=== PATIENT | female | born 1965 | race Caucasian/White ===

== ENCOUNTER 2023-11-26 06:31 | Day surgery (SDC) | payer OTHER, SELFPAY ==
[2023-11-17 08:56] LABS: Urine Albumin Negative (Neg - Trace); Urine Bilirubin Negative (Negative); Urine Character Clear (Clear); Urine Color Yellow; Urine Glucose Negative (Negative); Urine Ketone Negative (Negative); Urine Leukocyte Trace (Negative); Urine Nitrite Negative (Negative); Urine Occult Blood Negative (Negative); Urine Urobilinogen Negative (Neg - 1+)
[2023-11-17 08:57] LABS: Hematocrit 43.7 % (37.0-47.0); Hemoglobin 14.6 g/dL (12.0-16.0); Mean Corp Hgb Conc. 33.4 g/dL (33.0-37.0); Mean Corpuscular Hgb 29.3 pg (27.0-31.0); Mean Corpuscular Volume 87.6 fL (81.0-99.0); Mean Platelet Volume 10.3 fL (7.4-10.4); Platelet Count 257 10^3/uL (130-400); Red Blood Cell Count 4.99 10^6/uL (4.20-5.40); Red Cell Dist. Width 13.2 % (11.5-14.5); White Blood Cell Count 7.4 10^3/uL (4.8-10.8)
[2023-11-17 09:02] LABS: HCG, Urine Qualitative Screen Negative
[2023-11-17 09:20] LABS: ALT (SGPT) 82 U/L (0-35); AST (SGOT) 51 U/L (14-36); Albumin 4.1 g/dl (3.5-5.0); Alkaline Phosphatase 77 U/L (38-126); Blood Urea Nitrogen 16 mg/dl (7-17); Calcium 9.8 mg/dl (8.4-10.2); Carbon Dioxide 29 mmol/L (22-30); Chloride 102 mmol/L (98-107); Glucose 117 mg/dl (70-99); Potassium 5.1 mmol/L (3.5-5.1); Sodium 139 mmol/L (135-145); Total Bilirubin 0.6 mg/dl (0.2-1.3); Total Protein 6.8 g/dl (6.3-8.2); eGFR > 60.00
[2023-11-17 09:35] LABS: Urine Mucus Many; Urine Squamous Cell >30 /LPF (Few)
[2023-11-17 09:37] LABS: Urine Amorphous Seen; Urine Bacteria Few (Negative); Urine Red Blood Cell 0-2 /HPF (0-2); Urine White Cell 0-2 /HPF (0-5)
[2023-11-17 12:44] VITALS: BMI 28.4
[2023-11-26] VITALS (22 sets, daily range): BP systolic 105–153; BP diastolic 58–113; BMI 28.4
[2023-11-26] MEDS: NORMOSOL-R 1000 IV (11:42)
[2023-11-26] MEDS: DILAUDID 0.5 MG IV (13:59)
[2023-11-26] MEDS: ROXICODONE 5 MG PO (14:18)
== END 2023-11-26 17:40 | disposition home or self-care (01) ==
LOC: SDS 06:31
PROVIDERS: ATTENDING PHYSICIAN Podiatrist Foot & Ankle Surgery; FAMILY PHYSICIAN Registered Nurse
DX: M20.5X2 Other deformities of toe(s) (acquired), left foot (principal); M19.072 Primary osteoarthritis, left ankle and foot; M25.572 Pain in left ankle and joints of left foot
CPT/HCPCS: 28292; 88304; 88311; 36415; 80053; 81003; 81015; 81025; 85027

== ENCOUNTER → 2023-12-15 09:58 | Outpatient (REF) | payer OTHER, SELFPAY | LOC: WDC 09:58 | PROVIDERS: ATTENDING PHYSICIAN Obstetrics & Gynecology Gynecology; FAMILY PHYSICIAN Registered Nurse | DX: N63.10 Unspecified lump in the right breast, unspecified quadrant (principal); N63.13 Unspecified lump in the right breast, lower outer quadrant | CPT/HCPCS: 76642; 77061; 77065 ==

== ENCOUNTER → 2024-07-24 10:36 | Outpatient (REF) | payer OTHER, SELFPAY | LOC: RAD 10:36 | PROVIDERS: ATTENDING PHYSICIAN Family Medicine | DX: M79.661 Pain in right lower leg (principal) | CPT/HCPCS: 93971 ==

== ENCOUNTER → 2024-10-19 13:30 | Outpatient (REF) | payer OTHER, SELFPAY | LOC: WDC 13:30 | PROVIDERS: ATTENDING PHYSICIAN Obstetrics & Gynecology Gynecology; FAMILY PHYSICIAN Family Medicine | DX: Z78.0 Asymptomatic menopausal state (principal); Z12.31 Encounter for screening mammogram for malignant neoplasm of breast | CPT/HCPCS: 77063; 77067 ==

== ENCOUNTER 2025-02-23 14:48 | Emergency (ER) | payer OTHER, SELFPAY ==
[2025-02-23 14:48] VITALS: BMI 27.5
[2025-02-23 15:01] VITALS: BP 139/100
[2025-02-23 15:27] LABS: % Basophils 1.1 % (0-2); % Eosinophils 4.7 % (0-6); % Immature Granulocytes 0.2 % (0-0.5); % Lymphocytes 33.3 % (20.5-51.1); % Neutrophils 52.7 % (42.2-75.2); Absolute Basophils 0.1 10^3/uL (0-0.2); Absolute Eosinophils 0.4 10^3/uL (0-0.7); Absolute Lymphocytes 2.7 10^3/uL (1.2-3.4); Absolute Monocytes 0.6 10^3/uL (0.1-0.6); Absolute Neutrophils 4.2 10^3/uL (1.4-6.5); Hematocrit 43.1 % (37.0-47.0); Hemoglobin 14.5 g/dL (12.0-16.0); Mean Corp Hgb Conc. 33.6 g/dL (33.0-37.0); Mean Corpuscular Hgb 29.3 pg (27.0-31.0); Mean Corpuscular Volume 87.1 fL (81.0-99.0); Mean Platelet Volume 10.2 fL (7.4-10.4); Nucleated Red Blood Cells % 0 %; Platelet Count 252 10^3/uL (130-400); Red Blood Cell Count 4.95 10^6/uL (4.20-5.40); Red Cell Dist. Width 12.9 % (11.5-14.5)
[2025-02-23 15:37] LABS: Lactic Acid 1.1 mmol/L (0.7-2.0)
[2025-02-23 15:38] LABS: ALT (SGPT) 26 U/L (0-35); AST (SGOT) 23 U/L (14-36); Albumin 4.3 g/dl (3.5-5.0); Alkaline Phosphatase 70 U/L (38-126); Blood Urea Nitrogen 12 mg/dl (7-17); Carbon Dioxide 28 mmol/L (22-30); Chloride 104 mmol/L (98-107); Glucose 104 mg/dl (70-99); Lipase 136 U/L (23-300); Potassium 4.5 mmol/L (3.5-5.1); Sodium 140 mmol/L (135-145); Total Bilirubin 0.5 mg/dl (0.2-1.3); eGFR > 60.00
[2025-02-23 17:52] VITALS: BP 139/93
[2025-02-23 18:00] VITALS: BP 139/73
--- NOTE | 2025-02-23 18:29 | ED.GENMED ---
History of Present Illness
General
Chief Complaint: Abdominal Pain
Source: patient
Exam Limitations: none
Time Seen by Provider: 02/23/25 17:50
Nursing documentation reviewed up to this point in time: agreed with
History of Present Illness
History of Present Illness:
60-year-old female with history of asthma, breast cancer with bilateral lumpectomies, cholecystectomy 01/25/25 in [place] presents for periumbilical pain.
Drove back from [place] 02/13, has been feeling well. Started doing light activity, gardening and 3 days ago felt increasing periumbilical pain, called surgeon Dr. Nash in [place], spoke to RN who stated usually as people feel better around 4 weeks post op,
activity increases and pain worsens some.
This a.m. laying supine felt no pain but as she sat up and then stood, noted a small bulge and pain around umbilicus.
Went to PCP Dr. Smith who pressed on the area and thought she reduced a hernia.
Pt has since had some mild 'burning' mid abdomen.
Pt is to leave in 5 days to fly to [place] then to [place].
Past History
Past History
ED Past Medical History: Asthma (Brio inhaler, Flonase, Albuterol prn), Cancer (R Breast CA , radiation tx 2014) and Psychiatric (Depression/anxiety: Amitryptilline Nambumetal)
ED Past Surgical History: Other (Bilateral lumpectomy)
Social History
Tobacco: Non-smoker
Alcohol: Occasional
Drug: None
Living: with family
Employment: Employed (Director Of Purchasing)
Family History
Family History: Other
Review of Systems
Review of Systems
Allergies reviewed?: Yes
All Other Systems: ROS reviewed and negative except as documented in HPI and ROS
Constitutional: Denies fever
Respiratory: Denies trouble breathing
Cardiac: Denies chest pain
ABD/GI: Reports abdominal pain; Denies nausea, vomiting, diarrhea, constipated, bloody stools, black stools or anorexia
: Denies dysuria, frequency or difficulty voiding
Musculoskeletal: Reports no symptoms
Skin: Reports no symptoms
Neurological: Reports no symptoms
Phy Exam
Physical Exam
Physical Exam:
GENERAL: No acute distress. A&Ox3.
CONSTITUTIONAL: Afebrile.
EYES: clear, conjunctivae normal
ENMT: moist mucus membranes
RESPIRATORY: Regular respirations, nonlabored, lungs clear.
CARDIOVASCULAR: Regular rate and rhythm, no murmurs, no rubs.
GI: Soft, mildly tender mid abdomen, no palpable masses, normal BS. Standing OOB, mild STS noted left of umbilicus, again, no palpable masses, no significant tenderness.
MUSCULOSKELETAL: Moves with ease. Well perfused.
SKIN: Warm, dry, pink
PSYCH: Normal mood and affect. Well kept, interactive and appropriate
NEUROLOGIC: Awake, alert and oriented. No focal neurological deficits
Course
Orders/Labs/Results
Orders:
Orders
02/23/25 14:59
IV Insert/Care/Rem.- Treatment PRN
02/23/25 15:16
Complete Blood Count/With Diff Urgent
Comprehensive Metabolic Panel Urgent
Lactic Acid Urgent
Lipase Urgent
02/23/25 18:36
CT Abd/Pel (IV only)-DH only Urgent
Comment:
Reason For Exam: post chico periumbilicat pain and lump
Abnormal Lab Results
02/23/25
15:16
Glucose 104 H mg/dl
(70-99)
02/23/25 15:16
02/23/25 15:16
Vital Signs
Initial and Last Documented VS:
Initial Vital Signs
Temp Pulse Resp BP Pulse Ox
98.3 F 84 18 139/100 100
02/23/25 15:01 02/23/25 15:01 02/23/25 15:01 02/23/25 15:01 02/23/25 15:01
Last Documented Vital Signs
Temp Pulse Resp BP Pulse Ox
98.3 F 76 13 139/75 98
02/23/25 15:01 02/23/25 21:15 02/23/25 21:15 02/23/25 21:00 02/23/25 21:37
MDM/Problems Addressed
Differential Diagnosis Includes:
biliary leak, post op chico complication, umbilical hernia
MDM/Problems Addressed:
60-year-old female with history of asthma, breast cancer with bilateral lumpectomies, cholecystectomy 01/25/25 [place] presents for periumbilical pain.
Drove back from [place] 02/13, has been feeling well. Started doing light activity, gardening and 3 days ago felt increasing periumbilical pain, called surgeon Dr. Nash in [place], spoke to RN who stated usually as people feel better around 4 weeks post op,
activity increases and pain worsens some.
This a.m. laying supine felt no pain but as she sat up and then stood, noted a small bulge and pain around umbilicus.
Went to PCP Dr. Smith who pressed on the area and thought she reduced a hernia.
Pt has since had some mild 'burning' mid abdomen.
Pt is to leave in 5 days to fly to [place] then to [place].
5:00 p.m.
CBC normal
CMP: normal
Lipase normal
9:30 PM:
CT abdomen pelvis with IV only contrast radiology report read: IMPRESSION:
1. No significant abnormality identified in the abdomen or pelvis, as described above.
Pt given copy of CT report.
STS of abd wall just to left of umbilicus could simply be post surgical swelling, she admits she hasn't really looked at it to know if it's been there all along.
Rib belt placed on abdomen with pt stating it feels much better as she has been holding the area with her hands. States if feels much more stable and supported.
S & S of strangulated hernia reviewed with pt and travelling partner in room and they know to get medical care immediately on their trip if the occur.
Pt ambulated out with normal gait at discharge. Referred to general surgery.
*Critical Care Note
Total Time (30-74mins, 75-104mins- exclusive of procedures): Not Applicable
ED Attending Note
-
Portions of this chart may have been created with voice recognition software.� Occasional wrong word or��sound alike� substitutions may have occurred due to the inherent limitations of voice recognition software.
Discharge Plan
Departure
Patient Disposition: Home (Routine Discharge)
Date of Disposition: 02/23/25
Time of Disposition: 21:51
Patient with high blood pressure during this ER visit?: No
Condition: Good
Discharge Problem:
Abdominal pain
Instructions: Abdominal wall hernias, Abdominal Pain
Prescriptions:
No Action
amitriptyline 10 mg Tablet
10 mg PO HS Qty: 0
fluticasone furoate-vilanterol [Breo Ellipta] 200-25 mcg/dose Blister With Device
1 inh INHALATION DAILY
omeprazole
20 mg PO HS
albuterol sulfate 90 mcg/actuation Hfa Aerosol Inhaler
2 puff INHALATION PRN PRN (Reason: SOB, Asthma)
nabumetone 750 mg Tablet
750 mg PO HS
acetaminophen [Tylenol] 325 mg Capsule
650 mg PO Q4H PRN (Reason: pain)
Referrals:
Rosalba Smith DO [Family Provider] -
Jarett Duarte MD [Active] -
Activity Restrictions/Additional Instructions:
As we discussed, wear the elastic belt as long as it helps.
Tylenol or Ibuprofen as needed for pain
Seek medical care IMMEDIATELY for worsening abdominal pain
Interventions
Interventions:
*Risk Screen - Suicide Last Done: 02/23/25 15:01
*General Assessment Last Done: 02/23/25 15:01
*Neglect/Abuse Screening Last Done: 02/23/25 15:01
*ED COVID-19 Vaccine History Last Done: 02/23/25 15:01
*Nursing Disposition Last Done: 02/23/25 22:05
AU-Zyhetd-Swolfzfkvr Assessment Last Done: 02/23/25 18:13
Discharge Date and Time
Discharge Date/Time: 02/23/25 22:06
Print Language: CZECH
[2025-02-23 20:27] VITALS: BP 151/81
[2025-02-23 21:00] VITALS: BP 139/75
== END 2025-02-23 22:06 | disposition home or self-care (01) ==
LOC: EMR 14:48
PROVIDERS: EMERGENCY PHYSICIAN Student in an Organized Health Care Education/Training Program; FAMILY PHYSICIAN Family Medicine
DX: R10.33 Periumbilical pain (principal); J45.909 Unspecified asthma, uncomplicated; Z90.49 Acquired absence of other specified parts of digestive tract; Z85.3 Personal history of malignant neoplasm of breast
CPT/HCPCS: 99284; 74177; 80053; 83605; 83690; 85025; Q9967

== ENCOUNTER → 2025-07-17 06:38 | Outpatient (REF) | payer OTHER, SELFPAY | LOC: RAD 06:38 | PROVIDERS: ATTENDING PHYSICIAN Internal Medicine Gastroenterology; FAMILY PHYSICIAN Family Medicine | DX: R10.33 Periumbilical pain (principal); R10.9 Unspecified abdominal pain | CPT/HCPCS: 74177; Q9967 ==

== ENCOUNTER 2025-08-07 06:21 | Day surgery (SDC) | payer OTHER, SELFPAY | END 2025-08-07 10:38 | disposition home or self-care (01) | LOC: GI 06:21 | PROVIDERS: ATTENDING PHYSICIAN Internal Medicine Gastroenterology | DX: K57.30 Diverticulosis of large intestine without perforation or abscess without bleeding (principal); K63.5 Polyp of colon; K62.1 Rectal polyp; K64.8 Other hemorrhoids; R19.4 Change in bowel habit; R10.13 Epigastric pain; K44.9 Diaphragmatic hernia without obstruction or gangrene; K31.89 Other diseases of stomach and duodenum; Z87.11 Personal history of peptic ulcer disease | CPT/HCPCS: 45385; 45380; 43239; 88305; 88342 ==